=== PATIENT | male | born 1960 | race Caucasian/White ===

== ENCOUNTER 2017-11-09 10:24 | Emergency (ER) | payer BC ==
[2017-11-09] MEDS ORDERED: ASPIRIN 81 MG CHEWABLE CTB PO ONE (10:39)
[2017-11-09 10:45] VITALS: TEMP 98.7
[2017-11-09 11:00] LABS: BASOPHILS % (AUTO) 1 % (0-3); EOSINOPHILS % (AUTO) 1 % (0-9); HEMATOCRIT 42 % (39-53); MEAN CORPUSCULAR HGB CONC 34.3 gm/dl (32.0-36.0); MEAN CORPUSCULAR VOLUME 86 fL (80-100); MONOCYTES % (AUTO) 7.9 % (0-12); NEUTROPHILS % (AUTO) 59.4 % (37-80)
[2017-11-09 11:10] LABS: CALCIUM 8.6 mg/dl (8.5-10.1); GLOM FILT RATE 78 mL/min (>60); POTASSIUM 3.7 mMol/L (3.5-5.1); SODIUM 138 mMol/L (136-145)
[2017-11-09 11:30] VITALS: BP 172/101; PULSE 74; RESP 18; O2SAT 95
== END 2017-11-09 11:23 | disposition home or self-care (01) ==
LOC: ED 10:24
DX: R07.89 Other chest pain (principal)
CPT/HCPCS: 71045; 80048; 84484; 85025; 93005; 99284